=== PATIENT | male | born 1960 | race Two or more races ===

== ENCOUNTER 2023-03-27 14:13 | Emergency (ER) | payer MEDICARE, OTHER ==
[~2023-03-27] VITALS: Ht 175.3 cm; Wt 84.0 kg
[~2023-03-27 14:13] MED LIST: Hydrocodone PO; LISI-716 OR; OMEP20TA44 OR; PIOG15TA23 OR; [UNRECOGNIZED DRUG - CODE] OR; [UNRECOGNIZED DRUG - CODE] OR
[2023-03-27] MEDS ORDERED: KETOROLAC TROMETH 60MG/2ML VIAL IM ONE (15:00)
[2023-03-27] MEDS ORDERED: HYDROcodone-ACET 10/325MG TAB PO ONE (15:00)
[2023-03-27 16:04] VITALS: BP 123/87
[2023-03-27] MEDS ORDERED: IBUP800T27 PO (16:08)
[2023-03-27] MEDS ORDERED: METH750T22 PO (16:08)
== END 2023-03-27 16:22 | disposition home or self-care (01) ==
LOC: ER 14:13
DX: G89.29 Other chronic pain (principal); M54.50 Low back pain, unspecified
CPT/HCPCS: 96372; 99283; J1885